=== PATIENT | female | born 1985 | race Hispanic/Latino ===

== ENCOUNTER 2016-07-16 13:18 | Outpatient (CLI) | payer MEDICAID ==
--- NOTE | 2016-07-17 11:29 | XRay Report ---
IVP: FINDINGS: The host/hostess ground film demonstrates a somewhat cylindrical-shaped calcification in the left pelvis measuring approximately 5 mm in width and 1.3 cm in length. After injection of contrast, there is demonstration of normal renal outlines. The right renal collecting system and ureter are normal. There is very minimal dilatation of the left pyelocaliceal system. The left ureter is normal in caliber. The above-described calcification lies within the distal ureter. The urinary bladder is unremarkable. IMPRESSION: Cylindrical-shaped distal left ureteral calculus with very minimal obstruction.
== END 2016-07-16 13:19 | disposition home or self-care (01) ==
LOC: FLUORO 13:18
PROVIDERS: ATTEND Urology
DX: N20.0 Calculus of kidney (principal); N20.1 Calculus of ureter; N28.89 Other specified disorders of kidney and ureter
CPT/HCPCS: 74400; Q9967

== ENCOUNTER 2016-07-25 12:14 | Day surgery (SDC) | payer MEDICAID ==
[~2016-07-25 12:14] MED LIST: OMNIPAQUE 300 MG/50 ML (CATH LAB) IV ONE; WATER FOR IRRIG STERILE IR ONE
[2016-07-25] MEDS ORDERED: NACL BACTERIOSTATIC INFILTRATI ONE (12:58)
[2016-07-25] MEDS ORDERED: NACL 0.9% 1000 ML 1,000 ML ONE (13:08)
--- NOTE | 2016-07-25 13:08 | Anesthesia Consultation ---
Anesthesia Consult and Med Hx Date of service: 07/25/16 - Airway Anesthetic Teeth Evaluation: Good ROM Head & Neck: Adequate Mental/Hyoid Distance: Adequate Mallampati Class: Class II Intubation Access Assessment: Probably Good - Pulmonary Exam CTA: Yes - Cardiac Exam Cardiac Exam: RRR - Pre-Operative Health Status ASA Pre-Surgery Classification: ASA2 Proposed Anesthetic Plan: General - Pulmonary Hx Smoking: Yes (1/2 PPD X 11 YRS) Hx Sleep Apnea: No (SERGE PRE SCREEN LOW RISK) - Cardiovascular System Hx Hypertension: No - Central Nervous System Hx Psychiatric Problems: Yes (Anxiety and Depression) - Gastrointestinal Hx Gastroesophageal Reflux Disease: No - Endocrine Hx Insulin Dependent Diabetes: No - Other Systems Hx Cancer: No
--- NOTE | 2016-07-25 13:09 | Anesthesia Day of Surgery ---
Anesthesia Day of Surgery - Day of Surgery Patient Examined: Yes Patient H&P Reviewed: Yes Patient is NPO: Yes
[2016-07-25] MEDS ORDERED: DIPRIVAN 10 MG/ML IV ONE (13:27)
[2016-07-25] MEDS ORDERED: DILAUDID ONE (13:33)
[2016-07-25] MEDS ORDERED: OMNIPAQUE 300 MG/50 ML (CATH LAB) IV ONE ×2 (13:40→13:50)
[2016-07-25] MEDS ORDERED: WATER FOR IRRIG STERILE IR ONE ×2 (13:40→13:50)
[2016-07-25] MEDS ORDERED: ePHEDrine SULFATE ONE (13:45)
[2016-07-25] MEDS ORDERED: ZOFRAN ONE (13:56)
[2016-07-25] MEDS ORDERED: XYLOCAINE MPF 2% ONE (13:56)
[2016-07-25] MEDS ORDERED: NACL 0.9% 1000 ML 1,000 ML IV SCH (14:00)
[2016-07-25] MEDS ORDERED: ANCEF/STERILE WATER 2 GM/20 ML IV NR (14:00)
[2016-07-25] MEDS ORDERED: VERSED IV NR (14:00)
[2016-07-25] MEDS ORDERED: PEPCID IV NR (14:00)
[2016-07-25] MEDS ORDERED: DILAUDID IV PRN (14:55)
[2016-07-25] MEDS ORDERED: ZOFRAN IV PRN (14:55)
[2016-07-25] MEDS ORDERED: NORCO 5/325 PO PRN (14:55)
[2016-07-25] MEDS ORDERED: SUBLIMAZE ONE (15:01)
--- NOTE | 2016-07-25 15:18 | Short Stay Summary ---
Short Stay Documentation Date of service: 07/25/16 - History H&P: obtained from office - Allergies and Medications Current Medications: Allergies ketorolac tromethamine [From Toradol] Allergy (Unverified 07/19/16 13:02) Seizure CAUSES MUSCLE JERKING tramadol Allergy (Unverified 07/19/16 13:02) Seizure CAUSES MUSCLE JERKING Home Medications Medication Instructions Recorded Confirmed Last Taken Type ALPRAZolam [Xanax TAB] 0.5 mg PO DAILY 07/19/16 07/25/16 07/24/16 12:00 History ALPRAZolam [Xanax TAB] 1 mg PO BID 07/19/16 07/25/16 07/24/16 23:00 History HYDROcodone/APAP 5-325 [[place] 1 tab PO PRN PRN 07/19/16 07/25/16 07/24/16 23:00 History 5-325 mg TAB] Active Medications Cefazolin Sodium (Ancef/Sterile Water 2 Gm/20 Ml) 2 gm IV PREOP NR Stop: 07/25/16 23:59 Famotidine (Pepcid) 20 mg IV PREOP NR Stop: 07/25/16 23:59 Last Admin: 07/25/16 13:23 Dose: 20 mg Hydromorphone HCl (Dilaudid) 0.5 mg IV Q10MIN PRN PRN Reason: Pain , Severe (7-10) Stop: 07/25/16 23:00 Sodium Chloride (Nacl 0.9% 1000 Ml) 1,000 mls @ 75 mls/hr IV DIRECT HARDIK Last Admin: 07/25/16 13:22 Dose: 75 mls/hr Midazolam HCl (Versed) 2 mg IV PREOP NR Stop: 07/25/16 23:59 Last Admin: 07/25/16 13:22 Dose: 2 mg - Brief post op/procedure progress note Date of procedure: 07/25/16 Pre-op diagnosis: Left URET stone 20mm, Post-op diagnosis: same (plus UPJ stenosis) Procedure: Left urs, dil, sbe, laser, 6x26 stent, compl staged removal Anesthesia: GETA Findings: upj narrow, evidence prev attempt frag, lg stone Surgeon: DERRICK CALLE Estimated blood loss: minimal Pathology: list Specimen disposition: to lab Condition: stable - Hospital course Hospital course: orpacuhome - Disposition Condition at discharge: Good Disposition: DISCHARGED TO HOME OR SELFCARE Short Stay Discharge Plan Activity: advance as tolerated Diet: advance as tolerated Follow up with: DERRICK CALLE MD [Staff Physician] - 14 Days
[2016-07-25] MEDS ORDERED: PYRIDIUM PO SCH (16:00)
[2016-07-25] MEDS ORDERED: PERCOCET 5/325 PO PRN (16:27)
[2016-07-25 17:27] VITALS: BP 100/65
--- NOTE | 2016-07-26 09:25 | Fluoroscopy Report ---
Retrograde pyelogram and ureteral dilatation: Preliminary film demonstrates a linear calculus in the left pelvis. Injection of contrast on the right side demonstrates an unremarkable ureter and intrarenal collecting system. Injection of the left side confirms positioning of the calculus in the slightly dilated ureter. There is no apparent obstruction of the vein the visualized ureter proximal to the calculus. A balloon was used to dilate the distal ureter to the full diameter of the balloon. A ureteroscope is in place with the wire into the upper collecting system. Injection into the system demonstrated mild caliectasis with no filling defect. On the final image the ureteral calculus appears to have been removed and an internal stent left in place.
--- NOTE | 2016-08-02 10:31 | Operative Report ---
PREOPERATIVE DIAGNOSIS: Left distal ureteral 20-25 mm stone, complicated. POSTOPERATIVE DIAGNOSIS: Left distal ureteral 20-25 mm stone, complicated. PROCEDURE: Left ureteroscopy, dilation, stone basket extraction, laser, 6 x 26 double-J stent complex with staged removal of future stone, ____ procedure. ANESTHESIA: General. FINDINGS: UPJ narrowing, evidence of previous attempt to fragmentation of large stone. SURGEON: Zhao Lara M.D. ESTIMATED BLOOD LOSS: Minimal. PATHOLOGY: Stone, specimen to lab. CONDITION: Stable. CLINICAL INDICATIONS: The patient has a complex history of having previous retained stent ____ in [place], [place]. Per the patient, no urologist will treat her there in [place]. She has had a history of a retained stent with stones with attempts of stone removal in the past by her previous urologists in [place], [place] and they were unable to remove the stones. She was counseled extensively on options, high risk due to the complicated nature, due to large size of distal ureteral stone on the left side. She was counseled on triggers for emergent treatment afterwards, counseled on implications of being treated when she lives in [place] and indications for Emergency Room for extensive discussion undertaken also with previous treatments likely scarring tissue, potential strictures and other problems. She desired to proceed, had antibiotics and SCDs. DESCRIPTION OF PROCEDURE: Transferred to OR suite in supine position, anesthesia, dorsal lithotomy, prepped and draped in standard fashion. A 22-Grenadian scope passed. Pancystoscopy 30 and 70 degree lens. No tumors, lesions, or other abnormality. Right retrograde pyelogram with 8 Grenadian cone-tipped catheter within normal limits. No tumors or lesions or hydro or filling defects. Repeated on the left side with radiopaque density of 25 mm stone of the left side visible. Prior to injecting contrast showed filling defect around the proximal slight fullness of the ureter and renal pelvis. At this point, a wire was manipulated with the assistance of the ureteroscope, we were able to get a wire up to the left renal pelvis. Next, a balloon dilator was passed. It was inflated at 7 atmospheres for approximately 90 seconds, then deflated. This was done just below the stone. Rigid ureteroscope passed. Stone was visualized. Holmium laser passed. We began our fragmentation. This was extremely tedious and difficult with sequentially fragmenting the stone. Of note, prior to fragmentation, we did identify lehman within the stone that looked like a previous laser or some other device was attempted to use to fragment this stone. There were some marking similar to ____ or something. Stone was sequentially fragmented with the sequential pieces intermittently removing with triceps and switching with the laser and triceps. Eventually, we had adequate removal. Scope passed up to the proximal ureter. No residual stones were identified. Of note, the UPJ was identified and it appeared to be narrowed and likely stenosed, whether this was previous procedures and retained stent is unknown, but did appear to be some stenosed. At this point, the scope was withdrawn. Wire backloaded on the cystoscope. A 6 x 26 double-J stent was passed over the wire under direct and fluoroscopic visualization when the wire and instrument was removed. There was a nice proximal J, nice distal J within the bladder. Exam under anesthesia, no palpable urethral masses. The patient was awakened and transferred to the PACU in good and stable condition. PLAN: Follow up in office for staged removal of stent. JOB# [id number] ATS/NTS
== END 2016-07-25 17:10 | disposition home or self-care (01) ==
LOC: OR 12:14
PROVIDERS: ATTEND Urology
DX: N20.1 Calculus of ureter (principal); F17.210 Nicotine dependence, cigarettes, uncomplicated; F41.9 Anxiety disorder, unspecified; F32.9 Major depressive disorder, single episode, unspecified
CPT/HCPCS: 36415; 52356; 74420; 74485; 81025; 82365; A4217; C1726; C1758; C1769; C2617; J0690; J1170; J2250; J2405; J2704; J7030; Q9967; J3010

== ENCOUNTER 2016-10-17 08:37 | Day surgery (SDC) | payer MEDICAID ==
[2016-10-17] MEDS ORDERED: NACL BACTERIOSTATIC INFILTRATI ONE (09:23)
--- NOTE | 2016-10-17 09:35 | Anesthesia Consultation ---
Anesthesia Consult and Med Hx Date of service: 10/17/16 - Airway Anesthetic Teeth Evaluation: Good ROM Head & Neck: Adequate Mental/Hyoid Distance: Adequate Mallampati Class: Class II Intubation Access Assessment: Probably Good - Pulmonary Exam CTA: Yes - Cardiac Exam Cardiac Exam: RRR - Pre-Operative Health Status ASA Pre-Surgery Classification: ASA2 Proposed Anesthetic Plan: General - Pulmonary Hx Smoking: Yes (1/2 PPD X 11 YRS) Hx Sleep Apnea: No (SERGE PRE SCREEN LOW RISK) - Cardiovascular System Hx Hypertension: No - Central Nervous System Hx Psychiatric Problems: Yes (Anxiety and Depression) - Gastrointestinal Hx Gastroesophageal Reflux Disease: Yes - Endocrine Hx Insulin Dependent Diabetes: No - Other Systems Hx Cancer: No
--- NOTE | 2016-10-17 09:35 | Anesthesia Day of Surgery ---
Anesthesia Day of Surgery - Day of Surgery Patient Examined: Yes Patient H&P Reviewed: Yes Patient is NPO: Yes
[2016-10-17] MEDS ORDERED: DILAUDID IV ONE (09:36)
[2016-10-17] MEDS ORDERED: NORCO 5/325 PO PRN (09:37)
[2016-10-17] MEDS ORDERED: ZOFRAN IV PRN ×2 (09:37→13:00)
--- NOTE | 2016-10-17 09:43 | XRay Report ---
ABDOMEN RADIOGRAPHS INDICATION: Renal stone. COMPARISON: 07/25/2016 FINDINGS: Frontal abdominal radiographs again demonstrate a left ureteral stent with appropriately positioned coiled ends. Nonspecific 2.8 x 1.1 cm density though now surrounds the distal end within the urinary bladder. No other focal suspicious calcifications, pneumatosis or pneumoperitoneum. Clear visualized lung bases. Top normal heart size. Cholecystectomy clips. Nonobstructive bowel gas pattern. Colonic stool, greatest along the ascending colon/possible constipation. Intact bones. CONCLUSION: 1. Left double-J ureteral stent noted with nonspecific density surrounding its distal coiled end within the urinary bladder, as described. Please correlate. 2. Few other findings, as above. Thank you for the opportunity to participate in this patient's care.
[2016-10-17] MEDS ORDERED: VERSED IV ONE (09:49)
[2016-10-17] MEDS ORDERED: PEPCID IV NR (10:00)
[2016-10-17] MEDS ORDERED: ZOFRAN IV NR (10:00)
[2016-10-17] MEDS ORDERED: LACTATED RINGERS 1,000 ML IV SCH (10:00)
[2016-10-17] MEDS ORDERED: ANCEF/STERILE WATER 2 GM/20 ML IV NR (10:00)
[2016-10-17] MEDS ORDERED: DIPRIVAN 10 MG/ML IV ONE (10:58)
[2016-10-17] MEDS ORDERED: DILAUDID ONE (10:58)
[2016-10-17] MEDS ORDERED: NACL 0.9% 1000 ML 1,000 ML IV SCH (11:00)
[2016-10-17] MEDS ORDERED: NEO SYNEPHRINE/NS Syringe(OR USE) IV ONE (11:45)
[2016-10-17] MEDS ORDERED: XYLOCAINE MPF 2% ONE (11:49)
[2016-10-17] MEDS ORDERED: ePHEDrine SULFATE ONE (11:54)
[2016-10-17] MEDS ORDERED: ZOFRAN ONE (11:59)
[2016-10-17] MEDS ORDERED: WATER FOR IRRIG STERILE IR ONE ×2 (12:13)
[2016-10-17] MEDS: DILAUDID IV PRN ×4 (12:48→13:25)
[2016-10-17] MEDS ORDERED: DECADRON IV PRN (13:00)
[2016-10-17] MEDS ORDERED: DECADRON ONE (13:02)
--- NOTE | 2016-10-17 13:07 | Post Anesthesia Evaluation ---
- Post Anesthesia Evaluation Patient Participated: Yes Airway Patent: Yes Stable Respiratory Function: Yes Temp > 96.8F: Yes Pain Manageable: Yes Adequeate Hydration: Yes Anesthesia Complications: No Block Receding Appropriately: Not Applicable
[2016-10-17] MEDS ORDERED: REGLAN IV PRN (14:00)
[2016-10-17] MEDS ORDERED: REGLAN ONE (14:07)
--- NOTE | 2016-10-17 14:20 | Short Stay Summary ---
Short Stay Documentation Date of service: 10/17/16 - History H&P: obtained from office - Allergies and Medications Current Medications: Allergies ketorolac tromethamine [From Toradol] Allergy (Verified 10/04/16 10:29) MUSCLE SPAMS tramadol Allergy (Verified 10/04/16 10:29) MUSCLE SPAMS Home Medications Medication Instructions Recorded Confirmed Last Taken Type ALPRAZolam [Xanax TAB] 1 mg PO TID 07/19/16 10/04/16 10/15/16 History HYDROcodone/APAP 5-325 [[place] 1 tab PO PRN PRN 07/19/16 10/04/16 10/15/16 History 5-325 mg TAB] Ceftin 500 mg PO BID 10/04/16 10/04/16 10/15/16 History HYDROcodone/APAP 5-325 [[place] 1 each PO Q4HR PRN #30 tablet 10/17/16 Unknown Rx 5-325 mg TAB] Sulfamethoxazole/Trimethoprim 1 each PO BID #10 tablet 10/17/16 Unknown Rx [Bactrim DS TAB] Active Medications Acetaminophen/Hydrocodone Bitart ([place] 5/325) 2 each PO ONCE PRN PRN Reason: Pain, Moderate (4-6) Stop: 10/17/16 23:59 Last Admin: 10/17/16 13:50 Dose: 2 each Cefazolin Sodium (Ancef/Sterile Water 2 Gm/20 Ml) 2 gm IV PREOP NR Stop: 10/17/16 23:59 Dexamethasone (Decadron) 4 mg IV ONCE PRN PRN Reason: Nausea Last Admin: 10/17/16 13:00 Dose: 4 mg Famotidine (Pepcid) 20 mg IV PREOP NR Stop: 10/17/16 23:59 Last Admin: 10/17/16 09:55 Dose: 20 mg Hydromorphone HCl (Dilaudid) 0.5 mg IV Q10MIN PRN PRN Reason: Pain , Severe (7-10) Stop: 10/17/16 23:59 Last Admin: 10/17/16 13:25 Dose: 0.5 mg Sodium Chloride (Nacl 0.9% 1000 Ml) 1,000 mls @ 75 mls/hr IV DIRECT HARDIK Last Admin: 10/17/16 09:40 Dose: 75 mls/hr Ondansetron HCl (Zofran) 4 mg IV PREOP NR Stop: 10/17/16 23:59 Last Admin: 10/17/16 10:05 Dose: 4 mg Ondansetron HCl (Zofran) 4 mg IV ONCE PRN PRN Reason: Nausea And Vomiting Last Admin: 10/17/16 13:00 Dose: 4 mg - Brief post op/procedure progress note Date of procedure: 10/17/16 Pre-op diagnosis: bladder stone, retained stent encrustation Post-op diagnosis: same Procedure: cystolithalopaxy, stent exhange 6x26; lefet renal eswl Anesthesia: GETA Findings: stenrt stuck dif to remove, required eswl, sig large stone bladder Surgeon: DERRICK CALLE Estimated blood loss: minimal Pathology: none Condition: stable - Hospital course Hospital course: orpacyuhome - Disposition Condition at discharge: Good Disposition: DISCHARGED TO HOME OR SELFCARE Short Stay Discharge Plan Activity: advance as tolerated Diet: advance as tolerated Prescriptions: HYDROcodone/APAP 5-325 [[place] 5-325 mg TAB] 1 each PO Q4HR PRN #30 tablet PRN Reason: Pain Sulfamethoxazole/Trimethoprim [Bactrim DS TAB] 1 each PO BID #10 tablet
[2016-10-17 15:10] VITALS: BP 110/70
--- NOTE | 2016-10-17 17:26 | Operative Report ---
PREOPERATIVE DIAGNOSES: Retained stent, bladder and stent stones, history of urolithiasis, history of noncompliance. POSTOPERATIVE DIAGNOSES: Retained stent, bladder and stent stones, history of urolithiasis, history of noncompliance. PROCEDURE: Cystoscopy, cystolitholapaxy, left renal ESWL, left stent removal and placement of 6 x 28 double-J. ESTIMATED BLOOD LOSS: Minimal. COMPLICATIONS: None. FINDINGS: Encrusted stent large stones within the bladder around the stent requiring EHL and difficulty removing left stent requiring fragmentation. CLINICAL INDICATIONS: Counseled RCBA, antibiotics, and SCDs. The patient had been explicitly counseled that they must follow up one week after this stent placement in this procedure. They know the risk of permanent damage and all the other risks, and they understood and we will proceed that their responsibility to follow up for stent removal, antibiotics, and SCDs. DESCRIPTION OF PROCEDURE: The patient was transferred to OR suite in supine position, anesthesia, dorsal lithotomy, prepped and draped in standard fashion. A cystoscope passed, large stones around, in the bladder and around stent. EHL 500 micron probe passed. We fragmented the stone to smaller and smaller pieces and then irrigated these out, it was fairly significant. We attempted removing the stent, unable. Shockwave lithotripsy was performed. We fragmented the stone encrustation on the proximal stent. Throughout the procedure, we attempted to remove the stent, but due to its amount of encrustation, it was very tedious and difficult. We did have a safety wire in place, Glidewire, up to the renal pelvis. Eventually, we were able to remove the entire stent. Next, a 5-Mauritian open-ended catheter was passed over the wire under direct fluoroscopic visualization, contrast injected and dilated out renal pelvis, confirmed everything was in good position. No extravasation. A curved wire was then placed. A 5-Mauritian open-ended was removed. A 6 x 28 double-J stent was passed over the wire under direct and fluoroscopic visualization. When the wire and instrument was removed, there was nice proximal J and nice distal J within the bladder. Bladder drained. The patient awakened and transferred to PACU stage for future stent removal. JOB# [id number] ATS/NTS
== END 2016-10-17 15:00 | disposition home or self-care (01) ==
LOC: OR 08:37
PROVIDERS: ATTEND Urology
DX: T83.89XA Other specified complication of genitourinary prosthetic devices, implants and grafts, initial encounter (principal); N21.0 Calculus in bladder; I10 Essential (primary) hypertension; F17.210 Nicotine dependence, cigarettes, uncomplicated; F41.9 Anxiety disorder, unspecified; F32.9 Major depressive disorder, single episode, unspecified; K21.9 Gastro-esophageal reflux disease without esophagitis; Y83.8 Other surgical procedures as the cause of abnormal reaction of the patient, or of later complication, without mention of misadventure at the time of the procedure
CPT/HCPCS: 50590; 52318; 52332; 74000; 81025; A4217; C1726; C1758; C1769; C2617; J0690; J1100; J1170; J2250; J2370; J2405; J2704; J2765; J7030; Q9967